=== PATIENT | female | born 1975 ===

== ENCOUNTER 2020-10-05 07:00 | Inpatient (IN) | payer OTHER ==
[~2020-10-05] VITALS: Ht 172.7 cm; Wt 61.2 kg
== END 2020-10-14 11:19 | disposition home or self-care (01) | DRG 743 ==
LOC: OB/GYN 10-11 07:00 → O/R 10-12 06:16 → OB/GYN 10-12 07:00
PROVIDERS: ADMIT Obstetrics & Gynecology; ATTEND Obstetrics & Gynecology
PROC: 0UT20ZZ Resection of Bilateral Ovaries, Open Approach (ICD-10-PCS; 2020-10-12)
PROC: 0UB70ZZ Excision of Bilateral Fallopian Tubes, Open Approach (ICD-10-PCS; 2020-10-12)
PROC: 0UT90ZZ Resection of Uterus, Open Approach (ICD-10-PCS; principal; 2020-10-12 10:00)
DX: N72 Inflammatory disease of cervix uteri (principal); D25.1 Intramural leiomyoma of uterus; D25.0 Submucous leiomyoma of uterus; N83.02 Follicular cyst of left ovary; N83.01 Follicular cyst of right ovary; N85.2 Hypertrophy of uterus; Z20.828 Contact with and (suspected) exposure to other viral communicable diseases